=== PATIENT | female | born 1975 | race Caucasian/White ===

== ENCOUNTER 2017-03-07 08:51 | Emergency (ER) | payer OTHER ==
[~2017-03-07] VITALS: Ht 170.2 cm; Wt 67.1 kg
[2017-03-07 10:43] VITALS: BP 110/68
== END 2017-03-07 10:43 | disposition home or self-care (01) ==
LOC: ED 08:51
DX: N39.0 Urinary tract infection, site not specified (principal)

== ENCOUNTER 2018-02-05 12:21 | Emergency (ER) | payer OTHER ==
[~2018-02-05] VITALS: Ht 170.2 cm; Wt 64.9 kg
[2018-02-05 12:24] VITALS: Ht 170.2 cm; Wt 64.9 kg
[2018-02-05 14:20] VITALS: BP 101/78
== END 2018-02-05 15:03 | disposition home or self-care (01) ==
LOC: ED 12:21
DX: T78.3XXA Angioneurotic edema, initial encounter (principal); Z91.048 Other nonmedicinal substance allergy status; Y92.89 Other specified places as the place of occurrence of the external cause
CPT/HCPCS: J0171; J1200; J2060; J2930; J3490; J7030

== ENCOUNTER 2018-02-25 14:59 | Emergency (ER) | payer OTHER ==
[~2018-02-25] VITALS: Ht 170.2 cm; Wt 64.0 kg
[2018-02-25 15:08] VITALS: Ht 170.2 cm; Wt 64.0 kg
[2018-02-25 18:10] VITALS: BP 104/60
== END 2018-02-25 18:10 | disposition home or self-care (01) ==
LOC: ED 14:59
DX: T78.3XXA Angioneurotic edema, initial encounter (principal); F41.9 Anxiety disorder, unspecified; Z88.8 Allergy status to other drugs, medicaments and biological substances
CPT/HCPCS: J0171; J7512

== ENCOUNTER 2018-08-20 00:27 | Emergency (ER) | payer OTHER ==
[~2018-08-20] VITALS: Ht 170.2 cm; Wt 68.0 kg
[2018-08-20 00:59] VITALS: Ht 170.2 cm; Wt 68.0 kg
[2018-08-20 02:13] VITALS: BP 99/59
== END 2018-08-20 02:13 | disposition home or self-care (01) ==
LOC: ED 00:27
DX: S61.452A Open bite of left hand, initial encounter (principal); W50.3XXA Accidental bite by another person, initial encounter; F41.9 Anxiety disorder, unspecified; F32.9 Major depressive disorder, single episode, unspecified; Y93.89 Activity, other specified; Y92.89 Other specified places as the place of occurrence of the external cause; Y99.8 Other external cause status; Z88.8 Allergy status to other drugs, medicaments and biological substances
CPT/HCPCS: 90715